=== PATIENT | female | born 2000 | race Caucasian/White ===

== ENCOUNTER 2023-04-04 06:21 | Inpatient (IN) ==
[2023-04-04] MEDS ORDERED: PITOCIN ONE (06:40)
[2023-04-04] MEDS ORDERED: D5 1/2 NS 1,000 ML 1,000 ML IV ONE (06:41)
[2023-04-04] MEDS ORDERED: BETADINE SOLN ONE (06:41)
[2023-04-04] MEDS ORDERED: D5 1/2 NS 1,000 mL + PITOCIN 20 UNITS/L IV 20 UNITS/1,000 ML BAG IV ONE (06:42)
[2023-04-04] MEDS ORDERED: D5 LR + PITOCIN 10 UNITS/L 10 UNITS/1,000 ML BAG IV ONE (06:42)
--- NOTE | 2023-04-04 07:25 | DR.OB ---
OB Quick Note - Assessment/Plan Assessment/Plan: L&D 04/04/23 at 7:15am S-No complaint. O-Afebrile,VSS PSY=[id number] with good LTV, +accel, no decel. CTX=none CVX=3cm/50%/-1/VTX AROM with clear fluid. IUPC and FSE placed. A-IUP at 38 4/7 weeks for induction PIH +GBS P-Begin pitocin induction IV ABX in labor for +GBS F/U labs and preeclamptic labs Anticipate
[2023-04-04] MEDS ORDERED: NUBAIN INJ 20 MG AMP IVP PRN (07:27)
[2023-04-04] MEDS ORDERED: PITOCIN IVP ONE (07:27)
[2023-04-04] MEDS ORDERED: MORPHINE SULFATE INJ 2 MG INJ IVP PRN (07:27)
[2023-04-04] MEDS ORDERED: AMPICILLIN VIAL 2 GRAM 2 G in NS 100 ML IV 100 ML IV SCH (07:27)
[2023-04-04] MEDS ORDERED: STADOL INJ IVP PRN (07:27)
[2023-04-04] MEDS ORDERED: D5 1/2 NS 1,000 ML 1,000 ML IV SCH (07:27)
[2023-04-04] MEDS ORDERED: REGLAN INJ 10 MG VIAL IVP PRN (07:27)
[2023-04-04] MEDS ORDERED: ZOFRAN INJ 4 MG VIAL IVP PRN (07:27)
[2023-04-04] MEDS ORDERED: D5 LR + PITOCIN 10 UNITS/L 10 UNITS/1,000 ML BAG IV PRN (07:27)
[2023-04-04] MEDS ORDERED: AMPICILLIN VIAL 2 GRAM ONE (07:37)
[2023-04-04] MEDS ORDERED: NS 100 ML IV 100 ML ONE ×3 (07:37→15:35)
[2023-04-04 07:59] LABS: BASOPHILS # (AUTO) 0.1 X10^3/uL (0.0-0.1); EOSINOPHILS # (AUTO) 0.1 x10^3/uL (0.0-0.2); EOSINOPHILS % (AUTO) 0.9 % (0.9-2.9); HEMATOCRIT 28.6 % (36.0-47.0); HEMOGLOBIN 9.6 g/dL (12.0-16.0); LYMPHOCYTES # (AUTO) 3.5 X10^3/uL (1.3-2.9); LYMPHOCYTES % (AUTO) 37.8 % (21.0-51.0); MEAN CORPUSCULAR HEMOGLOBIN 30.7 pg (27.0-34.0); MEAN CORPUSCULAR HGB CONC 33.6 g/dL (33.0-35.0); MEAN CORPUSCULAR VOLUME 91.4 fL (80.0-100.0); MEAN PLATELET VOLUME 10.8 fL (7.4-11.0); MONOCYTES # (AUTO) 0.7 x10^3/uL (0.3-0.8); MONOCYTES % (AUTO) 7.2 % (0.0-13.0); NEUTROPHILS # (AUTO) 4.9 x10^3/uL (2.2-4.8); NEUTROPHILS % (AUTO) 53.1 % (42.0-75.0); PLATELET COUNT 225 X10^3/uL (150.0-450.0); RED BLOOD COUNT 3.13 X10^6/uL (3.5-5.4); RED CELL DISTRIBUTION WIDTH 13.1 % (11.6-16.5); WHITE BLOOD COUNT 9.3 X10^3/uL (3.6-10.0)
[2023-04-04 08:00] LABS: BILIRUBIN,URINE NEGATIVE (NEGATIVE); BLOOD/HEMOGLOBIN,URINE 1+ (NEGATIVE); GLUCOSE, URINE NEGATIVE (NEGATIVE); KETONES,URINE NEGATIVE (NEGATIVE); LEUKOCYTE ESTERASE ,URINE NEGATIVE (NEGATIVE); NITRITES,URINE NEGATIVE (NEGATIVE); PROTEIN,URINE 3+ (NEGATIVE); UROBILINOGEN,URINE NORMAL (NORMAL)
[2023-04-04 08:03] LABS: INR 0.92 (0.8-1.3)
[2023-04-04 08:07] LABS: ALANINE AMINOTRANSFERASE 18 Units/L (12-78); ASPARTATE AMINO TRANSFERASE 18 Units/L (15-37); BLOOD UREA NITROGEN 13 mg/dL (7-18); CALCIUM 8.3 mg/dL (8.5-10.1); CARBON DIOXIDE 21.5 mmol/L (21-32); CHLORIDE 107 mmol/L (98-107); GLUCOSE 94 mg/dL (65-99); LACTATE DEHYDROGENASE 233 Units/L (81-234); POTASSIUM 4.2 mmol/L (3.5-5.1); SODIUM 139 mmol/L (136-145); URIC ACID 4.4 mg/dL (2.6-6.0); eGFR NON BLACK RACES > 60 (>60)
[2023-04-04 08:19] LABS: APPEARANCE,URINE CLEAR (CLEAR); COLOR,URINE STRAW (YELLOW)
[2023-04-04 08:20] LABS: BACTERIA,URINE NEGATIVE /HPF (NEGATIVE); SQUAMOUS EPITHELIAL CELL,UR RARE /HPF (NEGATIVE)
[2023-04-04] MEDS ORDERED: FENTANYL VIAL INJ 100 mcg ONE ×2 (09:54→09:55)
[2023-04-04] MEDS ORDERED: NAROPIN EPIDURAL 0.2% 100 ML ONE (09:55)
[2023-04-04] MEDS ORDERED: LR 1,000 ML IV 1,000 ML IV ONE (09:57)
[2023-04-04] MEDS ORDERED: AMPICILLIN VIAL 1 GRAM ONE ×2 (11:28→15:35)
[2023-04-04] MEDS: AMPICILLIN VIAL 1 GRAM 1 G in NS 50 ML IV 50 ML IV SCH ×2 (11:30→15:35)
--- NOTE | 2023-04-04 12:10 | DR.OB ---
OB Quick Note - Assessment/Plan Assessment/Plan: L&D 04/04/23 at 12:05PM Pitocin=18mu/min. Ampicillin S-No complaint. s/p epidural. O-Afebrile,VSS [id number] with good LTV, +accel, no decel. CTX=q 1 1/2 to 3 min., about 35-55mmHg CVX=5cm/60%/-1 A-IUP at 38 4/7 weeks for induction PIH +GBS P-Cont. pitocin induction / ABX in labor Anticipate
[2023-04-04] MEDS ORDERED: TYLENOL 325 MG TAB PO ONE (15:55)
[2023-04-04] MEDS: TYLENOL 325 MG TAB PO PRN (16:00)
--- NOTE | 2023-04-04 17:06 | DR.OB ---
OB Quick Note - Assessment/Plan Assessment/Plan: L&D 04/04/23 at 5:00pm Pitocin=25mu/min. Ampicillin S-No complaint except pressure with CTX. O-Afebrile,VSS [id number] with good LTV, +accel, no decel. CTX=q 1 1/2 to 4 min., about 45-65mmHg CVX=7-8cm/100%/0/VTX A-IUP at 38 4/7 weeks for induction +GBS PIH P-Continue pitocin induction / ABX in labor Anticipate
--- NOTE | 2023-04-04 19:03 | DR.OB ---
OB Quick Note - Assessment/Plan Assessment/Plan: Delivery Note [employer] 04/04/23 at 18:42 Patient complete and pushing. Head delivered over midline episiotomy with right hand compound presentation. No nuchal cord. Nose and mouth bulb suctioned. Body delivered over intact perineum. Cord clamped x 2 and cut. Infant handed to attendant. Cord sent for gases. Placenta delivered spontaneously / intact / 3 vessel cord. No CVX tears. The second degree midline episiotomy repaired with 0-vicryl in usual fashion. Viable female infant delivered by , VTX/OA, wt=6'15" and 7/8, stable to NBN. Mother stable to RR. [id number].
[2023-04-04] MEDS ORDERED: D5 1/2 NS 1,000 ML 1,000 ML with PITOCIN 20 UNITS IV SCH ×2 (20:00)
[2023-04-04] MEDS ORDERED: AMBIEN PO PRN (20:04)
[2023-04-04] MEDS ORDERED: DERMOPLAST PAIN RELIEF SPRAY TOP PRN (20:04)
[2023-04-04] MEDS ORDERED: MILK OF MAGNESIA PO PRN (20:04)
[2023-04-04] MEDS ORDERED: ADACEL or BOOSTRIX TDaP VACCINE IM ONE (20:04)
[2023-04-04] MEDS: MOTRIN TAB 800 MG PO PRN (20:39)
[2023-04-05] MEDS: MOTRIN TAB 800 MG PO PRN ×2 (04:32→14:21)
[2023-04-05 05:05] LABS: HEMATOCRIT 21.5 % (36.0-47.0)
[2023-04-05 05:15] LABS: HEMOGLOBIN 7.2 g/dL (12.0-16.0)
[2023-04-05] MEDS: COLACE CAP 100 MG PO SCH ×2 (08:39→21:08)
[2023-04-05] MEDS: VSL#3 PO SCH (08:39)
[2023-04-05] MEDS: PRENATAL PLUS PO SCH (08:39)
[2023-04-05] MEDS: FERROUS GLUCONATE PO SCH (16:16)
[2023-04-06 03:30] VITALS: RESP 22
[2023-04-06] MEDS: MOTRIN TAB 800 MG PO PRN (03:30)
[2023-04-06] MEDS: FERROUS GLUCONATE PO SCH (06:02)
[2023-04-06] MEDS: TYLENOL 325 MG TAB PO PRN (08:01)
[2023-04-06 08:40] VITALS: BP 151/90; PULSE 64; TEMP 97.8; O2SAT 98
[2023-04-06] MEDS: VSL#3 PO SCH (08:43)
[2023-04-06] MEDS: COLACE CAP 100 MG PO SCH (08:44)
[2023-04-06] MEDS: PRENATAL PLUS PO SCH (08:44)
== END 2023-04-06 09:40 | disposition home or self-care (01) | DRG 806 ==
LOC: LD 06:21 → EDSTATUS 14:23 → MED/SURG 20:54
PROVIDERS: ADMIT Specialist; ATTEND Specialist